=== PATIENT | male | born 1960 | race Caucasian/White ===

== ENCOUNTER → 2022-11-28 09:24 | Outpatient (CLI) | payer OTHER, SELFPAY ==
[2022-11-28 10:42] LABS: Alanine Aminotransferase 30 IU/L (<50); Albumin 4.5 g/dL (3.5-5.0); Albumin Globulin Ratio 2.1 (1.0-2.8); Alkaline Phosphatase 91 U/L (38-126); Aspartate Aminotransferase 26 IU/L (17-59); BUN Creatinine Ratio 21.9 (6-22); Bilirubin Total 0.8 mg/dL (0.2-1.3); Blood Urea Nitrogen 21 mg/dL (9-20); Calcium 8.5 mg/dL (8.4-10.2); Carbon Dioxide 26 mmol/L (22-32); Chloride 99 mmol/L (98-107); Cholesterol 135 mg/dL (140-199); Estimated Glomerular Filt Rate > 60 mL/min (>60); Globulin 2.1 g/dL (1.7-4.1); Glucose 119 mg/dL (80-110); HDL Cholesterol 51 mg/dL (40-60); HEMOLYSIS < 15 (0-50); LDL Cholesterol Calculated 66 mg/dL (<100); Potassium 3.5 mmol/L (3.4-5.1); Sodium 136 mmol/L (137-145); Total Protein 6.6 g/dL (6.3-8.2); Triglycerides 92 mg/dL (35-150)
[2022-11-28 10:48] LABS: Add Manual Diff / Slide Review NO; Basophils Absolute Auto 100 /uL (0-100); Basophils Percent Auto 0.5 % (0-2); Eosinophils Absolute Auto 700 /uL (0-450); Eosinophils Percent Auto 7.2 % (2-4); Hematocrit 42.9 % (41-53); Hemoglobin 15.3 g/dL (13.5-17.5); Lymphocytes Absolute Auto 2000 /uL (1100-4500); Lymphocytes Percent Auto 19.7 % (25-40); Mean Corpuscular HGB Conc 35.7 % (30-36); Mean Corpuscular Hemoglobin 33.3 PG (26-34); Mean Corpuscular Volume 93.5 fL (80-100); Monocytes Absolute Auto 900 /uL (0-900); Monocytes Percent Auto 8.6 % (3-14); Neutrophils Absolute Auto 6400 /uL (1500-7000); Platelet Count 197 X10^3/uL (150-400); Red Blood Cell Count 4.58 X10^6/uL (4.5-5.9); Red Cell Distribution Width 13.4 % (11.6-14.8)
[2022-11-28 11:09] LABS: TSH w/ Reflex to FT4 1.33 uIU/mL (0.47-4.68)
[2022-11-30 07:08] LABS: PSA Free % 34.4 % (.); PSA, Total 0.9 ng/mL (0.0-4.0)
== END ==
DX: R53.83 Other fatigue (principal); I10 Essential (primary) hypertension; N18.32 Chronic kidney disease, stage 3b; Z12.5 Encounter for screening for malignant neoplasm of prostate; E78.2 Mixed hyperlipidemia
CPT/HCPCS: 36415; 80053; 80061; 84153; 84154; 84443; 85025

== ENCOUNTER → 2024-05-06 12:41 | Outpatient (CLI) | payer OTHER, SELFPAY ==
[2024-05-06 13:18] LABS: Add Manual Diff / Slide Review NO; Basophils Absolute Auto 100 /uL (0-100); Basophils Percent Auto 0.5 % (0-2); Eosinophils Absolute Auto 600 /uL (0-450); Hematocrit 37.4 % (41-53); Hemoglobin 12.8 g/dL (13.5-17.5); Lymphocytes Absolute Auto 1800 /uL (1100-4500); Lymphocytes Percent Auto 19.9 % (25-40); Mean Corpuscular HGB Conc 34.1 % (30-36); Mean Corpuscular Hemoglobin 32.4 PG (26-34); Mean Corpuscular Volume 94.9 fL (80-100); Monocytes Absolute Auto 800 /uL (0-900); Monocytes Percent Auto 8.2 % (3-14); Neutrophils Absolute Auto 6000 /uL (1500-7000); Neutrophils Percent Auto 65.4 % (50-75); Platelet Count 322 X10^3/uL (150-400); Red Blood Cell Count 3.94 X10^6/uL (4.5-5.9); Red Cell Distribution Width 15.2 % (11.6-14.8); White Blood Cell Count 9.2 X10^3/uL (4.5-11.0)
[2024-05-06 13:51] LABS: Alanine Aminotransferase 20 IU/L (<50); Albumin 4.2 g/dL (3.5-5.0); Alkaline Phosphatase 74 U/L (38-126); Aspartate Aminotransferase 26 IU/L (17-59); BUN Creatinine Ratio 12.3 (6-22); Bilirubin Total 0.9 mg/dL (0.2-1.3); Blood Urea Nitrogen 13 mg/dL (9-20); Calcium 8.6 mg/dL (8.4-10.2); Carbon Dioxide 28 mmol/L (22-32); Chloride 103 mmol/L (98-107); Cholesterol 155 mg/dL (140-199); Estimated Glomerular Filt Rate > 60 mL/min (>60); Globulin 2.1 g/dL (1.7-4.1); Glucose 141 mg/dL (80-110); HDL Cholesterol 49 mg/dL (40-60); HEMOLYSIS < 15 (0-50); LDL Cholesterol Calculated 73 mg/dL (<100); Potassium 4.2 mmol/L (3.4-5.1); Sodium 138 mmol/L (137-145); Total Protein 6.3 g/dL (6.3-8.2); Triglycerides 164 mg/dL (35-150); Uric Acid 8.2 mg/dL (3.5-8.5)
[2024-05-07 11:36] LABS: PSA, Total 1.3 ng/mL (0.0-4.0)
== END ==
PROVIDERS: PCP Specialist; Referring Provider Specialist; Visit Provider Specialist
DX: E78.2 Mixed hyperlipidemia (principal); N18.31 Chronic kidney disease, stage 3a; R53.83 Other fatigue
CPT/HCPCS: 36415; 80053; 80061; 84153; 84154; 84550; 85025